=== PATIENT | female | born 2000 | race Caucasian/White ===

== ENCOUNTER 2023-06-23 18:34 | Emergency (ER) | payer OTHER ==
[~2023-06-23] VITALS: Ht 154.9 cm; Wt 63.5 kg
[2023-06-23 19:06] VITALS: BP 125/3
[2023-06-23] MEDS ORDERED: CYCL10 PO (20:47)
== END 2023-06-23 21:04 | disposition home or self-care (01) ==
LOC: ER 18:34
DX: S46.912A Strain of unspecified muscle, fascia and tendon at shoulder and upper arm level, left arm, initial encounter (principal); S46.911A Strain of unspecified muscle, fascia and tendon at shoulder and upper arm level, right arm, initial encounter; M54.6 Pain in thoracic spine; V53.6XXA Passenger in pick-up truck or van injured in collision with car, pick-up truck or van in traffic accident, initial encounter
CPT/HCPCS: 96374; 99283-25; J1885